=== PATIENT | male | born 1960 | race Caucasian/White ===

== ENCOUNTER 2020-05-09 09:17 | Emergency (ER) | payer OTHER ==
[~2020-05-09] VITALS: Ht 185.4 cm; Wt 83.5 kg
== END 2020-05-09 11:20 | disposition designated cancer center or children's hospital (05) ==
LOC: ER 09:17 → CPU-OBS 10:17 → ER 10:17
DX: I21.3 ST elevation (STEMI) myocardial infarction of unspecified site (principal); R07.89 Other chest pain; I10 Essential (primary) hypertension
CPT/HCPCS: G0378; G0379; 93005